=== PATIENT | female | born 1980 ===

== ENCOUNTER 2021-11-12 15:21 | Outpatient (CLI) | payer OTHER | END 2021-11-12 16:56 | disposition home or self-care (01) | LOC: PRENATAL 15:21 | PROVIDERS: ATTEND Obstetrics & Gynecology Maternal & Fetal Medicine | DX: O10.011 Pre-existing essential hypertension complicating pregnancy, first trimester (principal); O36.80X1 Pregnancy with inconclusive fetal viability, fetus 1; O09.521 Supervision of elderly multigravida, first trimester; O24.311 Unspecified pre-existing diabetes mellitus in pregnancy, first trimester; Z36.89 Encounter for other specified antenatal screening; Z3A.13 13 weeks gestation of pregnancy ==

== ENCOUNTER 2021-11-22 19:20 | Emergency (ER) | payer OTHER ==
[~2021-11-22] VITALS: Ht 160 cm; Wt 86.2 kg
[2021-11-22] MEDS ORDERED: HUMULIN N100 UNIT/2 SQ (19:52)
[2021-11-22] MEDS ORDERED: PRENATAL + DHA1 EAC1 PO (19:53)
[2021-11-22] MEDS ORDERED: HUMULIN R100 UNIT/1 (19:53)
[2021-11-22] MEDS ORDERED: ADULT ASPIRIN R81 MG PO (19:53)
[2021-11-22] MEDS ORDERED: FOLIC ACID1 MG PO (19:54)
== END 2021-11-23 02:28 ==
LOC: ER
DX: U07.1 COVID-19 (principal); R10.2 Pelvic and perineal pain

== ENCOUNTER 2022-01-01 15:08 | Outpatient (CLI) | payer OTHER ==
[~2022-01-01 15:08] MED LIST: ADULT ASPIRIN R81 MG PO; FOLIC ACID1 MG PO; HUMULIN N100 UNIT/2 SQ; HUMULIN R100 UNIT/1; PRENATAL + DHA1 EAC1 PO
== END 2022-01-01 16:56 | disposition home or self-care (01) ==
LOC: PRENATAL 15:08
PROVIDERS: ATTEND Obstetrics & Gynecology Maternal & Fetal Medicine
DX: O09.529 Supervision of elderly multigravida, unspecified trimester (principal); O24.319 Unspecified pre-existing diabetes mellitus in pregnancy, unspecified trimester; O35.0XX0 Maternal care for (suspected) central nervous system malformation in fetus, not applicable or unspecified